=== PATIENT | female | born 1970 | race Caucasian/White ===

== ENCOUNTER 2024-03-24 10:26 | Observation (INO) | payer MEDICARE ==
[2024-03-24 11:20] LABS: #Basophils 0.04 10x3/uL (0.0-0.2); #Eosinphils 0.29 10x3/uL (0.0-0.5); #Monocytes 0.51 10x3/uL (0.0-1.1); #Neutrophils 3.59 10x3/uL (1.5-8.4); %Basophils 0.7 % (0.0-2.0); %Eosinophils 5.2 % (0.0-6.0); %Monocytes 9.2 % (0.0-10.0); %Neutrophils 64.7 % (40.0-75.0); Hematocrit 40.6 % (34.9-44.5); Hemoglobin 13.8 g/dL (12.0-15.5); Mean Corpuscular Hemoglobin 29.7 pg (27.0-33.0); Mean Corpuscular Volume 87.5 fL (81.6-98.3); Mean Platelet Volume 8.8 fL (7.4-10.4); Platelet Count 315 10x3/uL (150-450); RBC Distribution Width 12.1 % (11.5-14.5); Red Blood Cell (RBC) Count 4.64 10x6/uL (3.90-5.03); White Blood Cell (WBC) Count 5.6 10x3/uL (3.5-10.5)
[2024-03-24 11:35] LABS: Troponin I Less than 0.010 ng/mL (< 0.028)
[2024-03-24] MEDS ORDERED: Ondansetron PF 4 MG/2 ML Vial ONE (11:35)
[2024-03-24 11:37] LABS: ALT (SGPT) 27 U/L (8-55); AST (SGOT) 24 U/L (5-34); Albumin 3.8 g/dL (3.5-5.0); Alkaline Phosphatase 78 U/L (40-110); Anion Gap 14 mmol/L (10-20); BUN (Urea Nitrogen) 22 mg/dL (9.8-20.1); Bilirubin, Total 0.3 mg/dL (0.2-1.2); Calc. Creatinine Clearance 0 mL/min (70-130); Calcium 9.6 mg/dL (7.8-10.44); Carbon Dioxide 27 mmol/L (22-29); Chloride 101 mmol/L (98-107); Estimated GFR 65; Globulin 3.1 g/dL (2.4-3.5); Glucose 118 mg/dL (70-105); Lipase 63 U/L (8-78); Potassium 3.9 mmol/L (3.5-5.1); Protein, Total 6.9 g/dL (6.0-8.3); Sodium 138 mmol/L (136-145)
[2024-03-24] MEDS ORDERED: Morphine 4 MG/ML VIAL ONE (11:56)
[2024-03-24] MEDS ORDERED: Acetaminophen 325 MG TAB PO PRN (13:16)
[2024-03-24] MEDS ORDERED: Acetaminophen 650 MG Suppository PR PRN (13:16)
[2024-03-24] MEDS ORDERED: Senokot S 8.6-50 MG TAB PO PRN (13:16)
[2024-03-24] MEDS ORDERED: Ondansetron ODT 4 MG TAB PO PRN (13:16)
[2024-03-24] MEDS ORDERED: Ondansetron PF 4 MG/2 ML Vial IVP PRN (13:16)
[2024-03-24] MEDS ORDERED: Bisacodyl 5 MG TAB PO PRN (13:16)
[2024-03-24] MEDS ORDERED: Ipratropium/Albuterol 3 ML NEB NEB PRN (13:20)
[2024-03-24] MEDS ORDERED: Temazepam 15 MG CAP PO PRN (13:20)
[2024-03-24 14:38] VITALS: BMI 32.1
[2024-03-24 14:40] LABS: Troponin I Less than 0.010 ng/mL (< 0.028)
[2024-03-24] MEDS ORDERED: Ketorolac Tromethamine 30 MG/ML VIAL IJ PRN (14:46)
[2024-03-24] MEDS ORDERED: Ketorolac Tromethamine 30 MG (1 mL) VIAL IVP PRN (14:47)
[2024-03-24] MEDS: Aspirin Chewable 81 MG TAB PO SCH (16:46)
[2024-03-24] MEDS: traMADol HCl 50 MG TAB PO PRN (16:46)
[2024-03-24] MEDS ORDERED: Diclofenac 1% 100 GM Topical GEL TP SCH (17:00)
[2024-03-24 17:43] LABS: Troponin I Less than 0.010 ng/mL (< 0.028)
[2024-03-24] MEDS: Diclofenac 1% 50 GM TOPICAL GEL TP SCH (18:01)
[2024-03-24 19:53] LABS: Digoxin Less than 0.19 ng/mL (0.8-2.0)
[2024-03-24] MEDS ORDERED: ALPRAZolam 0.5 MG TAB PO SCH (20:00)
[2024-03-24] MEDS: Atorvastatin Calcium 40 MG TAB PO SCH (20:19)
[2024-03-24] MEDS: Famotidine 20 MG TAB PO SCH (20:19)
[2024-03-24] MEDS: rOPINIRole HCl 1 MG TAB PO SCH (20:19)
[2024-03-24] MEDS ORDERED: Famotidine/PF 20 mg/2ml Vial SLOW IVP PRN (21:00)
[2024-03-24] MEDS: Morphine 2 MG/ML VIAL SLOW IVP SCH (21:24)
[2024-03-24] MEDS: ALPRAZolam 1 MG TAB PO PRN (22:35)
[2024-03-25 04:05] LABS: Cardiac Risk 2.4 (Less than 4.5)
[2024-03-25 04:33] VITALS: TEMP 97.8
[2024-03-25 09:36] VITALS: BP 93/71
[2024-03-25] MEDS: Aspirin Chewable 81 MG TAB PO SCH (09:37)
[2024-03-25] MEDS: Digoxin 0.125 MG TAB PO SCH (09:37)
== END 2024-03-25 10:42 | disposition left against medical advice (07) ==
LOC: CSHERS 10:26 → CSHTELE 14:17
PROVIDERS: ADMIT Family Medicine; ATTEND Family Medicine
DX: M94.0 Chondrocostal junction syndrome [Tietze] (principal); I50.9 Heart failure, unspecified; I44.7 Left bundle-branch block, unspecified; J44.9 Chronic obstructive pulmonary disease, unspecified; E78.5 Hyperlipidemia, unspecified; G47.33 Obstructive sleep apnea (adult) (pediatric); Z79.899 Other long term (current) drug therapy; Z90.710 Acquired absence of both cervix and uterus; Z90.49 Acquired absence of other specified parts of digestive tract; Z87.891 Personal history of nicotine dependence; Z91.040 Latex allergy status; Z91.041 Radiographic dye allergy status; Z88.1 Allergy status to other antibiotic agents; Z88.7 Allergy status to serum and vaccine; Z88.8 Allergy status to other drugs, medicaments and biological substances; Z95.810 Presence of automatic (implantable) cardiac defibrillator
CPT/HCPCS: 71045; 80053; 80061; 80162; 83690; 83880; 84484 ×2; 85025; 93005; 94660; 94760; 96376; G0378 ×3; J2270; J2272; J2405; 36415